=== PATIENT | male | born 1990 | race Two or more races ===

== ENCOUNTER 2023-09-19 17:00 | Inpatient (IN) | payer MEDICAID ==
[~2023-09-19] VITALS: Ht 167.6 cm; Wt 72.6 kg
[2023-09-19] MEDS ORDERED: LORAZEPAM INJ 2 MG/ML VIAL IVP ONE (17:30)
[2023-09-19] MEDS ORDERED: IV NS 0.9% 1,000 ML BAG IV ONE ×2 (17:30→18:30)
[2023-09-19] MEDS ORDERED: HALOPERIDOL LACTATE INJ 5 MG/ML VIAL IM ONE (17:30)
[2023-09-19] MEDS ORDERED: diphenhydrAMINE HCL 50 MG/ML VIAL IV ONE (17:30)
[2023-09-19] MEDS ORDERED: diphenhydrAMINE HCL 50 MG/ML VIAL ONE (17:37)
[2023-09-19] MEDS ORDERED: HALOPERIDOL LACTATE INJ 5 MG/ML VIAL ONE (17:37)
[2023-09-19] MEDS ORDERED: LORAZEPAM INJ 2 MG/ML VIAL ONE ×2 (17:37→18:32)
[2023-09-19 17:39] LABS: BASOPHILS # (AUTO) 0.1 K/uL (0.0-0.2); BASOPHILS % (AUTO) 0.3 % (0.0-2.0); EOSINOPHILS % (AUTO) 0.1 % (0.0-6.0); HEMATOCRIT 44 % (39-51); HEMOGLOBIN 15.2 g/dL (13.5-17.5); LYMPHOCYTES # (AUTO) 1.1 K/uL (0.8-4.8); LYMPHOCYTES % (AUTO) 4.8 % (20.0-44.0); MEAN CORPUSCULAR HEMOGLOBIN 36 PG (26.0-33.0); MEAN CORPUSCULAR HGB CONC 35 g/dl (31.0-36.0); MEAN CORPUSCULAR VOLUME 103 fL (80-96); MONOCYTES # (AUTO) 0.8 K/uL (0.1-1.30); MONOCYTES % (AUTO) 3.8 % (2.0-12.0); PLATELET COUNT (AUTO) 267 K/uL (150-450); RED BLOOD CELL COUNT(AUTO) 4.26 MIL/uL (4.5-6.0); RED CELL DISTRIBUTION WIDTH 13.2 % (11.5-15.0)
[2023-09-19 17:46] LABS: CALCIUM, SERUM 9.4 mg/dL (8.5-10.1); CARBON DIOXIDE 17 mmol/L (21-32); CHLORIDE 104 mmol/L (98-107); CREATININE 1.5 mg/dL (0.6-1.3); GLUCOSE 130 mg/dL (74-106); POTASSIUM 3.5 mmol/L (3.5-5.1); SODIUM SERUM 145 mmol/L (136-145); UREA NITROGEN, BLOOD 17 mg/dL (7-18)
[2023-09-19 17:52] LABS: ALANINE AMINOTRANSFERASE 95 U/L (12-78); ALBUMIN 4.6 g/dL (3.4-5.0); ALKALINE PHOSPHATASE 48 U/L (46-116); ASPARTATE AMINOTRANSFERASE 90 U/L (15-37); BILIRUBIN,DIRECT 0.3 mg/dL (0.0-0.2); BILIRUBIN,TOTAL 1.2 mg/dL (0.2-1.0); TOTAL PROTEIN, SERUM 8.4 g/dL (6.4-8.2)
[2023-09-19 17:53] LABS: ACETAMINOPHEN <10 ug/ml (10-30); ALCOHOL, BLOOD < 3 mg/dL (0-10); SALICYLATE < 0.2 mg/dL (2.8-20.0)
[2023-09-19] MEDS ORDERED: LORAZEPAM INJ 2 MG/ML VIAL IV ONE ×2 (18:30→22:30)
[2023-09-19 18:53] LABS: APPEARANCE,URINE CLEAR (CLEAR); BILIRUBIN,URINE NEGATIVE (NEGATIVE); BLOOD, URINE 2+ Ery/uL (NEGATIVE); COLOR,URINE YELLOW (YELLOW); KETONES,URINE NEGATIVE (NEGATIVE); LEUKOCYTE ESTERASE ,URINE NEGATIVE (NEGATIVE); NITRITE, URINE NEGATIVE (NEGATIVE); PH,URINE 5.5 (5.0-8.0); PROTEIN,URINE 1+ mg/dl (NEGATIVE); UGLUCOSE NEGATIVE (NEGATIVE); UROBILINOGEN,URINE 0.2 EU/dL (0.2)
[2023-09-19 18:59] LABS: ADD URINE CULTURE NO; BACTERIA,URINE RARE /HPF (None Seen); COARSE GRANULAR CASTS,URINE Few /LPF (None Seen); RBC,URINE 21-50 /HPF (0-2); URINE AMORPHOUS URATE Few /HPF (None Seen); WBC,URINE 0-2 /HPF (0-3)
[2023-09-19 19:00] VITALS: O2SAT 96
[2023-09-19 19:00] LABS: HYALINE CASTS, URINE Few /LPF (None Seen); MUCUS,URINE Few /LPF (None Seen)
[2023-09-19 19:05] LABS: SQUAMOUS EPITHELIAL CELL,UR 0-2 /HPF (None Seen)
[2023-09-19 19:17] LABS: ANISOCYTOSIS 1+; BAND % (MANUAL) 2 % (0.0-5.0); LYMPHOCYTES % (MANUAL) 7 % (16-48); MONOCYTES % (MANUAL) 4 % (0-11.0); NEUTROPHILS % (MANUAL) 87 (42-76); PLATELET ESTIMATE ADEQUATE
[2023-09-19] MEDS ORDERED: ACETAMINOPHEN 325 MG TABLET PO PRN (20:00)
[2023-09-19] MEDS ORDERED: SODIUM BICARBONATE SYR 50 MEQ/50 ML DISP.SYRIN IV ONE (20:00)
[2023-09-19] MEDS ORDERED: ONDANSETRON HCL/PF 4 MG/2 ML VIAL IVP PRN (20:00)
[2023-09-19] MEDS ORDERED: IV D5 LR 1,000 ML IV SCH (20:00)
[2023-09-19] MEDS ORDERED: MORPHINE SULFATE INJ 2 MG/ML DISP.SYRIN IV PRN (20:00)
[2023-09-19 20:13] LABS: BASOPHILS % (AUTO) 0.3 % (0.0-2.0); HEMATOCRIT 38 % (39-51); HEMOGLOBIN 13.1 g/dL (13.5-17.5); LYMPHOCYTES # (AUTO) 0.7 K/uL (0.8-4.8); MEAN CORPUSCULAR HEMOGLOBIN 36 PG (26.0-33.0); MEAN CORPUSCULAR HGB CONC 34 g/dl (31.0-36.0); MEAN CORPUSCULAR VOLUME 103 fL (80-96); MONOCYTES # (AUTO) 0.7 K/uL (0.1-1.30); MONOCYTES % (AUTO) 4.7 % (2.0-12.0); NEUTROPHILS # (AUTO) 13.3 K/uL (1.8-8.9); PLATELET COUNT (AUTO) 152 K/uL (150-450); RED BLOOD CELL COUNT(AUTO) 3.69 MIL/uL (4.5-6.0); RED CELL DISTRIBUTION WIDTH 13.2 % (11.5-15.0); WHITE BLOOD COUNT (AUTO) 14.8 K/uL (4.3-11.0)
[2023-09-19 20:22] LABS: CALCIUM, SERUM 8.1 mg/dL (8.5-10.1); CREATININE 1.3 mg/dL (0.6-1.3); POTASSIUM 3.8 mmol/L (3.5-5.1)
[2023-09-19 20:29] LABS: ALBUMIN 3.6 g/dL (3.4-5.0); BILIRUBIN,TOTAL 1.2 mg/dL (0.2-1.0); TOTAL PROTEIN, SERUM 6.7 g/dL (6.4-8.2)
[2023-09-19 20:45] VITALS: BP 125/75; TEMP 98.5; O2SAT 96
[2023-09-19] MEDS ORDERED: CEFEPIME 2 GM in IV D5W 100 ML IV SCH (21:00)
[2023-09-19 21:14] LABS: LACTIC ACID 7.1 mmol/L (0.4-2.0)
[2023-09-19] MEDS: CHLORDIAZEPOXIDE HCL 25 MG CAPSULE PO SCH (21:28)
[2023-09-19] MEDS ORDERED: LORAZEPAM INJ 2 MG/ML VIAL IV PRN (22:30)
[2023-09-19] MEDS ORDERED: CEFEPIME 1 GM VIAL ONE (22:32)
[2023-09-20] VITALS: BP 144/99; TEMP 98.4; O2SAT 98
[2023-09-20] MEDS ORDERED: IV LR 1000 ML 1,000 ML IV SCH (02:30)
[2023-09-20 04:00] VITALS: BP 142/62; TEMP 98; O2SAT 100
[2023-09-20] MEDS: LORAZEPAM INJ 2 MG/ML VIAL IV PRN ×3 (04:52→22:02)
[2023-09-20] MEDS: IV LR 1000 ML 1,000 ML IV PRN ×3 (06:43→22:15)
[2023-09-20 06:45] LABS: BASOPHILS % (AUTO) 0.3 % (0.0-2.0); EOSINOPHILS % (AUTO) 0.1 % (0.0-6.0); HEMATOCRIT 38 % (39-51); HEMOGLOBIN 13.3 g/dL (13.5-17.5); LYMPHOCYTES # (AUTO) 1.6 K/uL (0.8-4.8); LYMPHOCYTES % (AUTO) 12.3 % (20.0-44.0); MEAN CORPUSCULAR HEMOGLOBIN 37 PG (26.0-33.0); MEAN CORPUSCULAR HGB CONC 35 g/dl (31.0-36.0); MEAN CORPUSCULAR VOLUME 104 fL (80-96); MONOCYTES # (AUTO) 0.6 K/uL (0.1-1.30); MONOCYTES % (AUTO) 4.8 % (2.0-12.0); NEUTROPHILS # (AUTO) 10.8 K/uL (1.8-8.9); NEUTROPHILS % (AUTO) 82.5 % (43.0-81.0); PLATELET COUNT (AUTO) 164 K/uL (150-450); RED BLOOD CELL COUNT(AUTO) 3.64 MIL/uL (4.5-6.0); RED CELL DISTRIBUTION WIDTH 13.3 % (11.5-15.0); WHITE BLOOD COUNT (AUTO) 13.1 K/uL (4.3-11.0)
[2023-09-20 07:30] VITALS: BP 136/92; TEMP 98.6; O2SAT 98
[2023-09-20 07:38] LABS: ALBUMIN 3.5 g/dL (3.4-5.0); BILIRUBIN,TOTAL 2.2 mg/dL (0.2-1.0); CALCIUM, SERUM 8.3 mg/dL (8.5-10.1); CREATININE 1.2 mg/dL (0.6-1.3); MAGNESIUM 1.7 mg/dL (1.8-2.4); PHOSPHORUS 3.3 mg/dL (2.5-4.9); TOTAL PROTEIN, SERUM 6.7 g/dL (6.4-8.2)
[2023-09-20] MEDS: CEFEPIME 2 GM in IV D5W 100 ML IV SCH ×2 (08:53→22:02)
[2023-09-20] MEDS: CHLORDIAZEPOXIDE HCL 25 MG CAPSULE PO SCH ×3 (08:54→16:35)
[2023-09-20 09:27] LABS: BAND % (MANUAL) 2 % (0.0-5.0); LYMPHOCYTES % (MANUAL) 10 % (16-48); MONOCYTES % (MANUAL) 6 % (0-11.0); NEUTROPHILS % (MANUAL) 82 (42-76); PLATELET ESTIMATE ADEQUATE
[2023-09-20] MEDS: POTASSIUM CHLORIDE 20 MEQ TAB.PRT.SR PO SCH ×3 (09:54→12:21)
[2023-09-20] MEDS ORDERED: MAGNESIUM OXIDE 400 MG TABLET PO ONE (10:00)
[2023-09-20] MEDS ORDERED: OLANZAPINE 10 MG TABLET PO ONE (13:30)
[2023-09-20] MEDS: THIAMINE HCL 100 MG TABLET PO SCH (14:12)
[2023-09-20 16:00] VITALS: BP 135/104; TEMP 99.1; O2SAT 100
[2023-09-21] MEDS ORDERED: OLANZAPINE 10 MG VIAL IM PRN (04:30)
[2023-09-21] MEDS: CHLORDIAZEPOXIDE HCL 25 MG CAPSULE PO SCH ×3 (08:36→17:13)
[2023-09-21] MEDS: THIAMINE HCL 100 MG TABLET PO SCH (08:36)
[2023-09-21] MEDS: CEFEPIME 2 GM in IV D5W 100 ML IV SCH ×2 (09:40→20:56)
[2023-09-21] MEDS: IV LR 1000 ML 1,000 ML IV PRN (10:50)
[2023-09-21 20:00] VITALS: BP 129/80; TEMP 98.6
[2023-09-22] MEDS: IV LR 1000 ML 1,000 ML IV PRN (03:51)
[2023-09-22 06:48] LABS: CALCIUM, SERUM 8.6 mg/dL (8.5-10.1); POTASSIUM 3.2 mmol/L (3.5-5.1)
[2023-09-22 07:00] VITALS: BP 140/89; TEMP 98.1
[2023-09-22 08:00] VITALS: BP 142/90; TEMP 98.2; O2SAT 97
[2023-09-22] MEDS ORDERED: FOLIC ACID 1 MG TABLET PO SCH (09:00)
[2023-09-22] MEDS: THIAMINE HCL 100 MG TABLET PO SCH (09:33)
[2023-09-22] MEDS: CEFEPIME 2 GM in IV D5W 100 ML IV SCH (09:33)
[2023-09-22] MEDS: CHLORDIAZEPOXIDE HCL 25 MG CAPSULE PO SCH ×3 (09:33→17:00)
[2023-09-22] MEDS: POTASSIUM CHLORIDE 20 MEQ TAB.PRT.SR PO SCH ×2 (11:19→12:20)
[2023-09-22] MEDS ORDERED: THIA100T70 PO (15:47)
[2023-09-22 16:00] VITALS: BP 140/90; TEMP 97.2; O2SAT 97
[2023-09-23] MEDS ORDERED: CHLORDIAZEPOXIDE HCL 25 MG CAPSULE PO SCH (09:00)
[2023-09-24] MEDS ORDERED: CHLORDIAZEPOXIDE HCL 25 MG CAPSULE PO SCH (09:00)
== END 2023-09-22 16:45 | disposition home or self-care (01) | DRG 351 ==
LOC: ER 17:00 → TELE 20:30
PROVIDERS: ADMIT Internal Medicine; ATTEND Nurse Practitioner Acute Care
DX: M62.82 Rhabdomyolysis (principal); N17.0 Acute kidney failure with tubular necrosis; G92.8 Other toxic encephalopathy; F10.131 Alcohol abuse with withdrawal delirium; E87.20 Acidosis, unspecified; J15.9 Unspecified bacterial pneumonia; E51.2 Wernicke's encephalopathy; E86.0 Dehydration; R56.9 Unspecified convulsions; D50.9 Iron deficiency anemia, unspecified; D72.829 Elevated white blood cell count, unspecified; E83.42 Hypomagnesemia; E87.6 Hypokalemia; N18.9 Chronic kidney disease, unspecified; E80.6 Other disorders of bilirubin metabolism; R53.1 Weakness; Y90.0 Blood alcohol level of less than 20 mg/100 ml; R00.0 Tachycardia, unspecified
CPT/HCPCS: 36415; 70450-TC; 71045-TC; 80048-TC; 80053-TC; 80076-TC; 81001; 82140-TC; 82550-TC; 82553; 83605-TC; 83735-TC; 84100-TC; 85025-TC; 87040-TC; 97112-TC; 97116-TC; 97530-TC; A4223; G0378; G0480; J0692; J1200; J1630; J2060; J3490; J7030; J7040; J7050; J7060; J7120